=== PATIENT | female | born 1955 | race Caucasian/White ===

== ENCOUNTER 2018-04-12 05:24 | Inpatient (IN) | payer BC ==
[2018-03-29 13:47] LABS: HEMATOCRIT 41.7 % (37.0-47.0); HEMOGLOBIN 14.6 gm/dL (12.0-15.0); MCHC 35.1 g/dL (28.0-37.0); RBC 4.58 mil/uL (4.20-5.00); RDW 13.2 % (10.5-14.5); WBC 5.3 thou/uL (4.0-11.0)
[2018-03-29 13:48] LABS: URINE BILIRUBIN NEGATIVE (Negative); URINE BLOOD NEGATIVE (Negative); URINE CLARITY CLEAR; URINE COLOR YELLOW; URINE GLUCOSE-RANDOM* NEGATIVE (Negative); URINE KETONES NEGATIVE (Negative); URINE LEUKOCYTES-REFLEX NEGATIVE (Negative); URINE NITRITE-REFLEX NEGATIVE (Negative); URINE PROTEIN (DIPSTICK) NEGATIVE (Negative); URINE SPECIFIC GRAVITY 1.025 (1.005-1.035); URINE UROBILINOGEN 0.2 E.U./dl (0.2-1.0)
[2018-03-29 13:58] LABS: CALCIUM 9.2 mg/dL (8.5-10.1); CREATININE 1.1 mg/dL (0.6-1.0); POTASSIUM 3.8 mmol/L (3.5-5.1)
[2018-03-29 14:01] LABS: PROTIME 9.9 Seconds (9.3-11.4)
[~2018-04-12] VITALS: Ht 162.6 cm; Wt 95.3 kg
--- NOTE | ~2018-04-12 | O ---
[facility] [place] [address] OPERATIVE REPORT Name: BIBIANA DUNLAP Room #: 464-P [facility] IN M.R.#: [id number] Admission: 04/12/18 Attend Phys: Bharat Barnes MD Discharge: Date of : 55 Report #: [id number] THIS REPORT FOR: //name// [facility]: [facility] DATE OF SERVICE: 04/12/2018 PREOPERATIVE DIAGNOSIS: End-stage degenerative osteoarthritis, right hip. POSTOPERATIVE DIAGNOSIS: End-stage degenerative osteoarthritis, right hip. PROCEDURE: Right total hip arthroplasty. SURGEON: Bharat Barnes MD. INDICATIONS: This 63-year-old female complains of severe right hip pain with limited range of motion. Clinical exam and x-rays confirmed evidence of severe degenerative osteoarthritis and possible AVN of the femoral head. She has elected to go ahead with total hip replacement. DESCRIPTION OF PROCEDURE: The patient was taken to the operating room where she was placed under general anesthesia. Prophylactic intravenous antibiotics were administered. She was turned to the left lateral decubitus position. The right hip and thigh were meticulously prepped and draped. A slightly curving posterior lateral skin incision was made centered over the greater trochanter. This was carried through fascia to expose the posterior aspect of the hip joint. The short external rotators were taken down and tagged. The capsule was opened and the hip dislocated. Marked degenerative change and some deformity of the femoral head was noted. A femoral neck osteotomy was performed. The canal was prepared with reamers and hand broaches. The Alfaro and Nephew hip system was utilized. A size 13 Synergy porous femoral component seemed to fit nicely. The trial stem was removed and attention directed to the acetabulum. The acetabulum was reamed, gradually advancing to a 50-mm reamer. A 50-mm StikTite fenestrated shell was then inserted, placing this in alignment with her true acetabulum, positioned this in about 45 degrees off of vertical and about 20 degrees of anteversion. This seated nicely and seemed to be secure. In addition, 2 cancellous screws were placed through the upper aspect of the shell engaging good periacetabular bone adding to stability. A 32-mm polyethylene liner was then inserted, placing the 20-degree elevated rim at about the 10 o'clock posterior position. It also seated nicely and was secure. A trial reduction was performed and the size 13 stem with a +0 neck length fit nicely. This resulted in good alignment, range of motion, stability and leg length. The trial stem was removed and a permanent Alfaro and Nephew Synergy size 13 porous stem was inserted, placing this in about 15-20 degrees of anteversion. It seated nicely and was secure. A 32-mm Oxinium femoral head was then applied [address] [address] OPERATIVE REPORT Name: BIBIANA DUNLAP FLORINDA Room #: 464-P [facility] IN M.R.#: [id number] Admission: 04/12/18 Attend Phys: Bharat Barnes MD Discharge: Date of : 55 Report #: [id number] using a +0 neck length. Once again alignment, range of motion, stability and leg length were assessed and felt to be satisfactory. The capsule and short external rotators were then repaired back to bone using the #1 Tevdek sutures, which had been previously placed. These were positioned through small drill holes in the greater trochanter. This added to hip stability. A single Hemovac was left in the wound exiting through a separate stab incision. The fascia was then closed with multiple #1 Vicryl sutures. The deeper subcutaneous tissues and adipose tissues were closed with 0 Monocryl. The skin was closed with skin brian. A sterile dressing was applied. The patient was awakened and returned to recovery room in good condition. <ELECTRONICALLY SIGNED> By: Bharat Barnes MD 04/13/18 1240 [id number] [id number] Bharat Barnes MD /nt
--- NOTE | ~2018-04-12 | D ---
[facility] [place] [address] DISCHARGE SUMMARY Name: BIBIANA DUNLAP Room #: 224-P [facility] IN M.R.#: [id number] Admission: 04/12/18 Attend Phys: Bharat Barnes MD Discharge: 04/16/18 Date of : 55 Report #: [id number] THIS REPORT FOR: //name// [facility] DATE OF SERVICE: 04/16/2018 FINAL DIAGNOSIS: End-stage degenerative osteoarthritis, right hip. OPERATIONS AND PROCEDURES: Right total hip arthroplasty. HISTORY OF PRESENT ILLNESS: This 63-year-old female complains of progressive right hip pain with severely limited ambulation. We have tried conservative measures without benefit. She has elected to go ahead with right total hip arthroplasty. HOSPITAL COURSE: The patient was admitted and taken to the operating room on 04/12/2018. She underwent right total hip arthroplasty which she tolerated well. Postoperatively, her course was slow due to moderate ongoing discomfort and generalized sense of weakness and fatigue. She was able to resume regular diet. She was started on anticoagulation. She was able to manage narcotic pain medication, although with some difficulty due to nausea, this was improved with scopolamine patch. She did make progress with therapy and seems now to be safe and independent using a walker. She is instructed on appropriate hip precautions and feels ready for discharge home with family assistance at this time. DISCHARGE MEDICATIONS: Include glucosamine chondroitin sulfate 1 daily, niacin 50 mg daily, magnesium sulfate 250 mg daily, vitamin B12 once daily, Xarelto 10 mg daily, hydrocodone 10 mg one-half or one tablet q.6 hours p.r.n. for pain. She has a scopolamine patch to assist with associated nausea. She will continue with physical therapy either with a visiting therapy at home or beginning her outpatient therapy pending her progress. I have asked her to call me if there are any problems or questions. We will plan to see her next week for routine followup and then the following week for suture removal. <ELECTRONICALLY SIGNED> By: Bharat Barnes MD 04/19/18 0939 [id number] [id number] Bharat Barnes MD /nt
--- NOTE | ~2018-04-12 | HC ---
[facility] [place] [address] CONSULTATION Name: BIBIANA DUNLAP Room #: 224-P [facility] IN M.R.#: [id number] Admission: 04/12/18 Attend Phys: Bharat Barnes MD Discharge: 04/16/18 Date of : 55 Report #: [id number] THIS REPORT FOR: //name// CC: Bharat ZhouKyree DATE OF SERVICE: 04/14/2018 HISTORY OF PRESENT ILLNESS: The patient is a 63-year-old white female admitted with right hip degenerative arthritis, unresponsive to conservative measures. She underwent a right total hip arthroplasty on 04/12/2018. She is allowed weightbearing as tolerated. We are seeing her in rehabilitation medicine consultation. She has had a rather slow progress, but overall is improving as far as her postoperative therapies. PAST MEDICAL HISTORY: Includes hypertension, hyperlipidemia, acid reflux, kidney stones, bilateral knee arthroscopy, prior right ankle sprain, history of exogenous obesity. MEDICATIONS: Please see the full medication listing. This includes vitamins, herbals, and supplements. ALLERGIES: SULFA. SOCIAL HISTORY: Lives in a house with her spouse, 6 steps in, was premorbidly modified independent. Used a standard cane or a walker. REVIEW OF SYSTEMS: Did not offer any current complaints of chest pain, shortness of breath or abdominal discomfort. She notes the right lower extremity is painful/having some discomfort, but feels that it is improving. HABITS: Nonsmoker, occasional alcohol. PHYSICAL EXAMINATION: GENERAL: She is a pleasant 63-year-old white female in no obvious distress. VITAL SIGNS: Last recorded temperature 98.8, pulse 80, respirations 18, blood pressure 133/74. She is alert, oriented. HEENT: Appeared to be benign. NEUROLOGIC: Cranial nerves are grossly intact. Facies are symmetric. EXTREMITIES: Functional range of motion of both upper extremities without obvious focal weakness. DTRs are 1. In the lower extremities, right hip is dressed. There is no focal calf swelling. She has the drain in place. She can dorsiflex the right ankle without obvious focal weakness. Functional range of motion of left lower extremity strength is grade 4+/5. DTRs are trace to 1. She is min assist with sit to stand. Gait was min assist 150 feet with front-wheeled walker. Lower extremity dressing is standby assistance. [address] [address] CONSULTATION Name: BIBIANA DUNLAP FLORINDA Room #: 224-P [facility] IN M.R.#: [id number] Admission: 04/12/18 Attend Phys: Bharat Barnes MD Discharge: 04/16/18 Date of : 55 Report #: [id number] ASSESSMENT: The patient is a 63-year-old white female with the following problems: 1. Right hip degenerative arthritis, status post right total hip arthroplasty on 04/12/2018. Weightbearing as tolerated. 2. Recent history of nausea, scopolamine patch. 3. Insomnia, on Melatonin. 4. History of hypertension. 5. Hyperlipidemia. 6. Acid reflux. 7. History of kidney stones. PLAN: The patient is gradually progressing with her functional mobility and ADLs. She is now ambulating 150 feet with a walker and lower extremity dressing is standby assistance. She does have 6 steps into the house and physical therapy will be working with her on steps. We would anticipate she should be able to return directly home as she further medically stabilizes and further improves functionally. We will be glad to follow along with you regarding her rehab therapy needs. Thank you for asking us to assist in this patient's care. <ELECTRONICALLY SIGNED> By: Bharat Correa MD 04/23/18 1220 1248 [id number] Bharat Correa MD /nt
[~2018-04-12 05:24] MED LIST: EXCEDRIN CAPLE1 EACH PO; FISH OIL 1,001000 M2 PO; GLUCOSAMINE CH1 EAC1 PO; MAGNESIUM250 MG PO; MOBIC15 MG PO; NIACIN50 MG PO; VITAMIN B-121000 MCG PO
[2018-04-12 09:12] VITALS: BP 163/84
[2018-04-12 14:00] VITALS: BP 164/68
[2018-04-12 15:21] VITALS: BP 144/86
[2018-04-12 16:51] VITALS: BP 146/85
[2018-04-12 19:53] VITALS: BP 142/85
[2018-04-13 00:14] VITALS: BP 143/78
[2018-04-13 05:39] LABS: HEMATOCRIT 34.8 % (37.0-47.0); HEMOGLOBIN 12.3 gm/dL (12.0-15.0); MCH 32.4 pg (26.0-34.0); MCHC 35.2 g/dL (28.0-37.0); RBC 3.78 mil/uL (4.20-5.00); RDW 12.5 % (10.5-14.5); WBC 9.8 thou/uL (4.0-11.0)
[2018-04-13 08:44] LABS: CALCIUM 8.8 mg/dL (8.5-10.1); CREATININE 0.8 mg/dL (0.6-1.0); POTASSIUM 3.8 mmol/L (3.5-5.1)
[2018-04-13 08:58] VITALS: BP 130/65
[2018-04-13 16:50] VITALS: BP 130/60
[2018-04-13 20:07] VITALS: BP 122/63
[2018-04-14 07:21] LABS: HEMATOCRIT 32.2 % (37.0-47.0); HEMOGLOBIN 11.5 gm/dL (12.0-15.0); MCH 32.7 pg (26.0-34.0); MCHC 35.6 g/dL (28.0-37.0); MCV 91.8 fL (80.0-100.0); RBC 3.51 mil/uL (4.20-5.00); RDW 12.8 % (10.5-14.5); WBC 8.8 thou/uL (4.0-11.0)
[2018-04-14 08:29] VITALS: BP 133/74
[2018-04-14 19:38] VITALS: BP 131/67
[2018-04-15 06:35] LABS: HEMATOCRIT 29.8 % (37.0-47.0); HEMOGLOBIN 10.7 gm/dL (12.0-15.0); MCH 32.7 pg (26.0-34.0); MCHC 35.8 g/dL (28.0-37.0); MCV 91.4 fL (80.0-100.0); RBC 3.26 mil/uL (4.20-5.00); RDW 12.7 % (10.5-14.5); WBC 7.5 thou/uL (4.0-11.0)
[2018-04-15 08:25] VITALS: BP 136/71
[2018-04-15 14:26] VITALS: BP 136/71
[2018-04-15 20:54] VITALS: BP 123/66
[2018-04-16 07:40] VITALS: BP 160/83
[2018-04-16] MEDS ORDERED: PREVACID30 MG PO (15:01)
[2018-04-16] MEDS ORDERED: SCOPOLAMINE1 EACH TRANSDERM (15:01)
== END 2018-04-16 16:29 | disposition home health service (06) | DRG 470 ==
LOC: TBA 05:24 → PRE 06:22 → 4W 13:49 → PRE 15:04 → SICU 04-13 16:05 → ENTRNSPT 04-16 15:16 → EDTRNSPTSTS 04-16 15:21 → SICU 04-16 16:29
PROVIDERS: Orthopaedic Surgery
PROC: 0SR906Z Replacement of Right Hip Joint with Oxidized Zirconium on Polyethylene Synthetic Substitute, Open Approach (ICD-10-PCS; principal; 2018-04-12)
DX: M16.11 Unilateral primary osteoarthritis, right hip (principal); I10 Essential (primary) hypertension; E78.5 Hyperlipidemia, unspecified; E66.09 Other obesity due to excess calories; G47.00 Insomnia, unspecified; K21.9 Gastro-esophageal reflux disease without esophagitis; Z87.442 Personal history of urinary calculi; Z68.36 Body mass index [BMI] 36.0-36.9, adult; Z88.2 Allergy status to sulfonamides; Z79.01 Long term (current) use of anticoagulants; Z79.899 Other long term (current) drug therapy; Z79.82 Long term (current) use of aspirin
CPT/HCPCS: 10047; 15002; 50010; 50101; 50382; 50414; 51412; 51771; 53000; 53368; 56521; 56525; 56527; 57103; 62110; 62900; 70005